=== PATIENT | male | born 2000 | race Hispanic/Latino ===

== ENCOUNTER 2021-06-21 06:54 | Emergency (ER) | payer MEDICAID, OTHER ==
[~2021-06-21] VITALS: Ht 182.9 cm; Wt 68.0 kg
[2021-06-21] MEDS ORDERED: FAMO-136 PO (07:48)
[2021-06-21] MEDS ORDERED: NAPR-1180 PO (07:48)
[2021-06-21 08:25] LABS: BASOPHILS % (AUTO) 0.5 % (0.0-5.0); EOSINOPHILS % (AUTO) 1.5 % (0.0-8.0); HEMATOCRIT 44.3 % (42-54); LYMPHOCYTES % (AUTO) 48.4 % (21.0-51.0); MEAN CORPUSCULAR HEMOGLOBIN 29.6 pg (27.0-33.0); MEAN CORPUSCULAR HGB CONC 34.8 g/dL (32.0-36.0); MEAN CORPUSCULAR VOLUME 85.2 fL (80-100); MONOCYTES % (AUTO) 8.8 % (3.0-13.0); NEUTROPHILS % (AUTO) 40.3 % (40.0-77.0); PLATELET COUNT (AUTO) 281 K/uL (130-400); RED CELL DISTRIBUTION WIDTH 12.8 % (11.0-15.5); WHITE BLOOD COUNT (AUTO) 7.9 K/uL (4.8-10.8)
[2021-06-21 08:27] VITALS: BP 146/87
[2021-06-21 08:40] LABS: ALBUMIN 4.6 g/dL (3.5-5.0); BILIRUBIN,TOTAL 0.5 mg/dL (0.2-1.0); CREATININE 0.8 mg/dL (0.5-1.5); POTASSIUM 3.4 mmol/L (3.5-5.1); TOTAL PROTEIN, SERUM 8.4 g/dL (6.0-8.3)
[2021-06-21 08:59] LABS: APPEARANCE,URINE Clear (CLEAR); BILIRUBIN,URINE Negative (NEGATIVE); COLOR,URINE Yellow (YELLOW); GLUCOSE, URINE (UA) Negative (NEGATIVE); KETONES,URINE 15 mg/dL (NEGATIVE); LEUKOCYTE ESTERASE ,URINE Negative (NEGATIVE); NITRATE,URINE Negative (NEGATIVE); OCCULT BLOOD,URINE Negative (NEGATIVE); PH,URINE 6.5 (5.0-8.0); PROTEIN,URINE Negative (NEGATIVE)
[2021-06-21 10:02] LABS: BACTERIA,URINE Few /HPF (None Seen); RBC,URINE None Seen /HPF (0-1); SQUAMOUS EPITHELIAL CELL,UR None Seen /HPF (0-2); WBC,URINE None Seen /HPF (0-1)
[2021-06-21 10:05] VITALS: BP 124/78
== END 2021-06-21 10:06 | disposition home or self-care (01) ==
LOC: EDH 06:54
DX: K21.9 Gastro-esophageal reflux disease without esophagitis (principal); F41.9 Anxiety disorder, unspecified; R07.89 Other chest pain
CPT/HCPCS: 36415; 71045; 80053; 81001; 84484; 85025; 93005

== ENCOUNTER 2025-01-06 10:19 | Emergency (ER) | payer SELFPAY ==
[~2025-01-06] VITALS: Ht 182.9 cm; Wt 65.8 kg
[~2025-01-06 10:19] MED LIST: FAMO-136 PO; NAPR-1180 PO
[2025-01-06 10:20] VITALS: RESP 16; TEMP 98.3; O2SAT 100
[2025-01-06] MEDS ORDERED: LORA10TA7 PO (11:05)
--- NOTE | 2025-01-06 11:09 | ERN ---
General Chief Complaint: Congestion Stated Complaint: CONGESTION Time Seen by MD: 10:21 Time Seen by Midlevel: 10:21 Source: patient History of Present Illness Initial Comments Patient is a healthy 24-year-old male presenting to the emergency department for evaluation of nasal congestion that has been ongoing for several weeks. Patient also reports redness to his right eye. Patient was in no other complaints. Patient has no medical history. Patient does not take any medications on a daily basis. Allergies: Coded Allergies: No Known Drug Allergies (Unverified Allergy, Unknown, 06/21/21) Home Meds Active Scripts Loratadine (Loratadine) 10 Mg Tablet, 1 TAB PO DAILY for allergy symptoms for 30 Days, #30 TAB 0 Refills Prov:VERA HUDSON 01/06/25 Naproxen (Naprosyn) 500 Mg Tablet, 500 MG PO BID PRN for PAIN LEVEL 1 TO 5, #20 TAB Prov:TREVON OLIVER MD 06/21/21 Famotidine (Pepcid) 20 Mg Tablet, 20 MG PO BID, #30 TAB Prov:TREVON OLIVER MD 06/21/21 Past Medical History Past Medical History: No Pertinent History Past Surgical History: None Social History Social History: Lives with family ROS Dictation CONSTITUTIONAL: Negative except for HPI HEAD/FACE: Negative except for HPI EENT: Negative except for HPI RESPIRATORY: Negative except for HPI GASTROINTESTINAL/ABDOMINAL: Negative except for HPI GENITOURINARY: Negative except for HPI MUSCULOSKELETAL: Negative except for HPI INTEGUMENTARY: Negative except for HPI NEUROLOGICAL/PSYCH: Negative except for HPI HEMATOLOGIC/LYMPHATIC: Negative except for HPI All Systems Negative, Except as noted above. 13 point review of systems assessed and all negative except for above. Physical Exam Physical Exam Dictation Vital Signs reviewed General Appearance: Alert, oriented x 3, no acute distress, well developed, nourished. Head and Face: non-traumatic. Eyes: PERRL, pink conjunctivas, eyelid no trauma, anterior chamber with arcus s enilis. Ears: Pinnas intact and no signs of trauma or erythema ear canals clear and no discharge TM no erythema Nose: No discharge, no bleeding. Oropharynx: Mouth normal, tongue pink, pharynx clear,no erythema, tonsils no exudates, no abscesses noted, mucous membrane moist Neck: Supple, non-tender, no thyromegaly, no masses, no JVD, no bruits Breast:Deferred Chest:No tenderness, no crepitus, no paradoxical movement, no retractions Lungs:Clear, well-ventilated, symmetric, no rales, no wheezing, no rhonchi, no stridor, good breath sounds bilaterally Heart: Regular rate, regular rhythm, no murmur, no gallops Vascular: no peripheral edema, Abdomen: Soft, positive bowel sounds, nondistended, no guarding, nontender, no rebound, no masses no hepatomegaly, no splenomegaly, no Rachel's sign, no hernias. Rectal: Deferred Genital: Deferred Neurological: Normal speech, motor function intact, sensory function intact Musculoskeletal: Neck nontender, full range of motion, back nontender, full range of motion, Extremities: nontender, full range of motion Skin: Color pink, dry, no turgor, no rash, no lacerations, no abrasions, no contusions. Lymphatic: Deferred MDM MDM: Patient is a healthy 24-year-old male presenting to the emergency depa rtment for evaluation of nasal congestion that has been ongoing for several weeks. Patient also reports redness to his right eye. Patient was in no other complaints. Patient has no medical history. Patient does not take any medications on a daily basis. On physical examination the patient was in no acute distress. Vital signs are stable. Patient was afebrile and nontoxic appearing. His ENT examination is unremarkable. There are no boggy turbinates or signs of sinusitis. Oropharynx is unremarkable. His physical exam is unremarkable. There was no medical emergency at this time. Patient will be discharged home with a diagnosis of her allergic rhinitis and will be sent home with a prescription for loratadine. Patient needs to follow up with his PCP. No need for emergent intervention at this time. Differential diagnosis: Allergic rhinitis, seasonal allergies, wellness exam ination, sinusitis There are no social concerns with this patient. Prescription drug management Prescriptions will include: Loratadine Medical management and examination interpretation discussions were had by me with other qualified healthcare professionals as indicated for the patient's care. ED Course Vital Signs Date Time Temp Pulse Resp B/P (MAP) Pulse Ox O2 Delivery O2 Flow Rate FiO2 01/06/25 10:20 98.2 16 100 Room Air 0 01/06/25 10:20 98.4 16 100 Room Air* 0 21 DX & DISP Disposition: Discharge Departure Impression: Primary Impression: Allergic rhinitis Condition: Stable Scripts Loratadine (Loratadine) 10 Mg Tablet 1 TAB PO DAILY for allergy symptoms for 30 Days, #30 TAB 0 Refills Prov: VERA HUDSON 01/06/25 Additional Instructions: Your physical examination is unremarkable. There was no evidence of sinusitis or any other acute infection. No need for antibiotics. Symptoms most likely related to allergies. I have given you a prescription for loratadine. You need to follow up with your primary care doctor. No need for emergent intervention at this time. Referrals: NEEL THOMPSON MD (PCP) Time of Disposition: 11:05 I have reviewed the case, and I agree with, Diagnosis and Plan I performed the substantive portion of the visit. I have reviewed and pers onally made and approve the management plan that is documented in the note by myself or the DARYA. I acknowledge for responsibility for the patient's management plan. VERA HUDSON Jan 06, 2025 11:09 LB MENDOZA DO Jan 06, 2025 11:42
== END 2025-01-06 11:31 | disposition home or self-care (01) ==
LOC: EDH 10:19
DX: J30.9 Allergic rhinitis, unspecified (principal)
CPT/HCPCS: 99282